=== PATIENT | female | born 1950 | race African-American/Black ===

== ENCOUNTER 2017-12-09 19:07 | Inpatient (IN) | payer MEDICARE ==
[~2017-12-09] VITALS: Ht 162.6 cm; Wt 61.3 kg
[2017-12-09] MEDS ORDERED: SODIUM CHLORIDE 0.9% 1,000 ML IV ONE (20:47)
[2017-12-09 21:22] LABS: BASOPHILS % 2.7 % (0.0-2.0); EOSINOPHILS % 2.6 % (0.0-5.0); HEMATOCRIT. 33.3 % (36.0-48.0); HEMOGLOBIN. 11.2 g/dL (12.0-16.0); LYMPHOCYTES % 29.7 % (20.0-50.0); MEAN CORPUSCULAR HEMOGLOBIN 32.3 pg (28.0-32.0); MEAN CORPUSCULAR VOLUME 96.3 fL (81.0-99.0); MEAN PLATELET VOLUME 8.7 fl (7.4-10.4); MONOCYTES % 9.7 % (2.0-8.0); NEUTROPHILS % 55.3 % (40.0-76.0); PLATELET 177 x1000/uL (130-400); RED BLOOD CELL COUNT 3.46 mill/uL (4.2-5.4); RED CELL DISTRIBUTION WIDTH 14.4 % (11.6-14.6)
[2017-12-09 21:30] LABS: CHLORIDE 106 mEq/L (98-107); INR 1.2; PARTIAL THROMBOPLASTIN TIME 28.9 sec (23.4-31.0); PROTHROMBIN TIME 12.1 sec (9.4-11.6)
[2017-12-09 21:38] LABS: TROPONIN I 0.19 ng/mL (0.00-0.04)
[2017-12-09] MEDS ORDERED: ASPIRIN 325MG EC TABLET PO ONE (22:00)
[2017-12-09] MEDS ORDERED: VANCOMYCIN 1 G PREMIX 200 ML IV ONE (23:00)
[2017-12-09] MEDS ORDERED: PIPERACILLIN/TAZ 3.375G PREMIX 50 ML IV ONE (23:00)
[2017-12-10] VITALS (8 sets, daily range): BP systolic 123–150; BP diastolic 77–108
[2017-12-10] MEDS ORDERED: POTASSIUM CHLORIDE 20MEQ TABLET SR PO NR (03:15)
[2017-12-10] MEDS ORDERED: ACETAMINOPHEN 325MG TABLET PO PRN (03:15)
[2017-12-10] MEDS ORDERED: DIPHENHYDRAMINE 50MG/ML VIAL IV PRN (03:15)
[2017-12-10] MEDS ORDERED: IPRATROPIUM/ALBUTEROL 0.5-3(2.5)MG/3ML NEB INH PRN (03:15)
[2017-12-10] MEDS: DEXT 5%/0.45% NACL 1000ML 1,000 ML IV SCH ×2 (05:02→16:35)
[2017-12-10] MEDS: SODIUM CHLORIDE 0.9% INJ 3ML FLUSH IVF SCH ×3 (05:02→21:13)
[2017-12-10 10:21] LABS: T4 FREE 0.28 ng/dL (0.76-1.46)
[2017-12-10] MEDS: CLONIDINE 0.1MG TABLET PO PRN (18:05)
[2017-12-10 18:51] LABS: CREATINE KINASE MB FRACTION 2.6 ng/mL (0.5-3.6); TROPONIN I 0.29 ng/mL (0.00-0.04)
[2017-12-11] VITALS: BP 139/90
[2017-12-11 01:07] LABS: CREATINE KINASE MB FRACTION 3.2 ng/mL (0.5-3.6)
[2017-12-11] MEDS: DEXT 5%/0.45% NACL 1000ML 1,000 ML IV SCH ×3 (03:22→21:55)
[2017-12-11 04:00] VITALS: BP 145/91
[2017-12-11] MEDS: SODIUM CHLORIDE 0.9% INJ 3ML FLUSH IVF SCH ×3 (05:11→21:54)
[2017-12-11 08:00] VITALS: BP 158/98
[2017-12-11] MEDS: ASPIRIN 81MG TABLET PO SCH (08:33)
[2017-12-11] MEDS: CLONIDINE 0.1MG TABLET PO PRN ×2 (09:57→18:44)
[2017-12-11 12:00] VITALS: BP 168/111
[2017-12-11 12:32] LABS: CREATINE KINASE MB FRACTION 3.4 ng/mL (0.5-3.6)
[2017-12-11 16:00] VITALS: BP 150/102
[2017-12-11 20:00] VITALS: BP 135/90
[2017-12-11] MEDS ORDERED: LEVOTHYROXINE SODIUM 100 MCG/ VIAL IV SCH (21:00)
[2017-12-11] MEDS: AMLODIPINE 5MG TABLET PO SCH (21:54)
[2017-12-12] VITALS: BP 131/82
[2017-12-12 04:00] VITALS: BP 155/85
[2017-12-12] MEDS: SODIUM CHLORIDE 0.9% INJ 3ML FLUSH IVF SCH ×3 (05:20→22:57)
[2017-12-12] MEDS: DEXT 5%/0.45% NACL 1000ML 1,000 ML IV SCH (05:20)
[2017-12-12 07:54] LABS: KETONES URINE NEGATIVE (NEGATIVE); LEUKOCYTE ESTERASE URINE NEGATIVE (NEGATIVE); NITRITE URINE NEGATIVE (NEGATIVE); OCCULT BLOOD URINE NEGATIVE (NEGATIVE); PH URINE 5.5 (4.5-8.0); PROTEIN URINE NEGATIVE (NEGATIVE); SPECIFIC GRAVITY URINE 1.007 (1.005-1.030); UROBILINOGEN URINE 0.2 E.U./dL (0.2-1.0)
[2017-12-12 07:56] LABS: CLARITY URINE CLEAR (CLEAR); COLOR URINE YELLOW (YELLOW)
[2017-12-12 08:00] VITALS: BP 127/102
[2017-12-12 08:30] LABS: *AMPHETAMINES SCREEN URINE NEGATIVE (NEGATIVE); *BARBITURATES SCREEN URINE NEGATIVE (NEGATIVE); *BENZODIAZEPINES SCREEN URINE NEGATIVE (NEGATIVE); *COCAINE SCREEN URINE NEGATIVE (NEGATIVE); CANNABINOID URINE SCREEN NEGATIVE (NEGATIVE); METHADONE URINE SCREEN NEGATIVE (NEGATIVE); OPIATES URINE SCREEN NEGATIVE (NEGATIVE); PHENCYCLIDINE URINE SCREEN NEGATIVE (NEGATIVE)
[2017-12-12] MEDS: AMLODIPINE 5MG TABLET PO SCH ×2 (08:33→22:57)
[2017-12-12] MEDS: ASPIRIN 81MG TABLET PO SCH (08:33)
[2017-12-12] MEDS: CLONIDINE 0.1MG TABLET PO PRN (08:38)
[2017-12-12] MEDS ORDERED: LEVOTHYROXINE SODIUM 100 MCG/ VIAL IV SCH ×2 (08:42→09:00)
[2017-12-12 12:00] VITALS: BP 131/80
[2017-12-12] MEDS ORDERED: LEVOTHYROXINE SODIUM 100MCG TABLET PO NR (15:00)
[2017-12-12 16:00] VITALS: BP 132/87
[2017-12-12 20:00] VITALS: BP 152/97
[2017-12-13] VITALS: BP 133/84
[2017-12-13 04:00] VITALS: BP 143/95
[2017-12-13] MEDS: LEVOTHYROXINE SODIUM 100MCG TABLET PO SCH (06:33)
[2017-12-13] MEDS: SODIUM CHLORIDE 0.9% INJ 3ML FLUSH IVF SCH ×3 (06:33→21:57)
[2017-12-13 08:00] VITALS: BP_SYST 136; BP_SYST 144; BP_DIAS 87; BP_DIAS 95
[2017-12-13] MEDS: AMLODIPINE 5MG TABLET PO SCH ×2 (10:31→21:55)
[2017-12-13] MEDS: ASPIRIN 81MG TABLET PO SCH (10:31)
[2017-12-13 12:00] VITALS: BP 135/90
[2017-12-13 16:00] VITALS: BP 128/84
[2017-12-14] VITALS: BP 134/82
[2017-12-14 04:00] VITALS: BP 120/77
[2017-12-14] MEDS: LEVOTHYROXINE SODIUM 100MCG TABLET PO SCH (06:47)
[2017-12-14] MEDS: SODIUM CHLORIDE 0.9% INJ 3ML FLUSH IVF SCH ×2 (06:47→13:06)
[2017-12-14 08:00] VITALS: BP 122/74
[2017-12-14] MEDS: ASPIRIN 81MG TABLET PO SCH (08:54)
[2017-12-14] MEDS: AMLODIPINE 5MG TABLET PO SCH (08:54)
[2017-12-14 12:00] VITALS: BP 127/82
[2017-12-14 16:00] VITALS: BP 118/75
[2017-12-14 18:37] VITALS: BP 118/75
== END 2017-12-14 19:30 | DRG 682 ==
LOC: ER 20:36 → 5WST 22:58 → ENRESERV 23:22 → EDBEDREQ 23:27
PROVIDERS: ADMIT Internal Medicine; ATTEND Internal Medicine
DX: N17.9 Acute kidney failure, unspecified (principal); I50.33 Acute on chronic diastolic (congestive) heart failure; J96.00 Acute respiratory failure, unspecified whether with hypoxia or hypercapnia; G93.41 Metabolic encephalopathy; E44.1 Mild protein-calorie malnutrition; E87.1 Hypo-osmolality and hyponatremia; I13.0 Hypertensive heart and chronic kidney disease with heart failure and stage 1 through stage 4 chronic kidney disease, or unspecified chronic kidney disease; N18.9 Chronic kidney disease, unspecified; E78.5 Hyperlipidemia, unspecified; E03.9 Hypothyroidism, unspecified; D64.9 Anemia, unspecified; R73.9 Hyperglycemia, unspecified; D72.819 Decreased white blood cell count, unspecified; R07.89 Other chest pain; E78.00 Pure hypercholesterolemia, unspecified; E86.0 Dehydration; Z68.23 Body mass index [BMI] 23.0-23.9, adult
CPT/HCPCS: 36415; 71045; 80048; 80053; 80061; 80305; 81003; 82533; 82550; 82553; 83036; 83605; 83735; 83880; 84100; 84439; 84443; 84484; 85025; 85379; 85610; 85730; 87040; 87086; 93005; 93306; 93970; 96361; 96365; 96367; 97162; 97166; 99285; C1893; J2543; J3370; J3490; J7030

== ENCOUNTER 2018-07-20 23:18 | Inpatient (IN) | payer MEDICARE ==
[~2018-07-20] VITALS: Ht 162.6 cm; Wt 57.6 kg
[2018-07-20] MEDS ORDERED: ONDANSETRON HCL 4MG/2ML INJ IV STA (23:37)
[2018-07-20] MEDS ORDERED: DILTIAZEM HCL 30MG TABLET PO ONE (23:45)
[2018-07-20] MEDS ORDERED: ASPIRIN 81MG TABLET PO ONE (23:45)
[2018-07-21 00:14] LABS: BASOPHILS % 0.7 % (0.0-2.0); HEMATOCRIT. 35.6 % (36.0-48.0); HEMOGLOBIN. 11.8 g/dL (12.0-16.0); LYMPHOCYTES % 27.8 % (20.0-50.0); MEAN CORPUSCULAR HEMOGLOBIN 30.5 pg (28.0-32.0); MEAN CORPUSCULAR VOLUME 91.5 fL (81.0-99.0); MEAN PLATELET VOLUME 9.7 fl (7.4-10.4); MONOCYTES % 12.8 % (2.0-8.0); NEUTROPHILS % 56.7 % (40.0-76.0); PLATELET 173 x1000/uL (130-400); RED BLOOD CELL COUNT 3.89 mill/uL (4.2-5.4); RED CELL DISTRIBUTION WIDTH 14.5 % (11.6-14.6)
[2018-07-21 00:17] LABS: CHLORIDE 102 mEq/L (98-107)
[2018-07-21 00:23] LABS: ETHANOL BLOOD < 10 mg/dL
[2018-07-21 00:24] LABS: D-DIMER 2.08 mg/L FEU (<0.50); INR 1.1; PARTIAL THROMBOPLASTIN TIME 29.4 sec (23.4-31.0); PROTHROMBIN TIME 10.8 sec (9.1-11.1)
[2018-07-21] MEDS ORDERED: IPRATROPIUM/ALBUTEROL 0.5-3(2.5)MG/3ML NEB INH PRN (02:30)
[2018-07-21] MEDS ORDERED: GUAIFENESIN 200MG/10ML SUGAR FREE UDC PO PRN (02:30)
[2018-07-21] MEDS ORDERED: ONDANSETRON HCL 4MG/2ML INJ IV PRN (02:30)
[2018-07-21] MEDS ORDERED: DIPHENHYDRAMINE 50MG/ML VIAL IV PRN (02:30)
[2018-07-21] MEDS ORDERED: MAGNESIUM/ALUMINUM HYDROXIDE/SIMETHICONE 30ML UDC PO PRN (02:30)
[2018-07-21] MEDS ORDERED: ACETAMINOPHEN 325MG TABLET PO PRN (02:30)
[2018-07-21 02:32] LABS: *AMPHETAMINES SCREEN URINE NEGATIVE (NEGATIVE); *BARBITURATES SCREEN URINE NEGATIVE (NEGATIVE); *BENZODIAZEPINES SCREEN URINE NEGATIVE (NEGATIVE); *COCAINE SCREEN URINE NEGATIVE (NEGATIVE)
[2018-07-21 02:33] LABS: CANNABINOID URINE SCREEN NEGATIVE (NEGATIVE); METHADONE URINE SCREEN NEGATIVE (NEGATIVE); OPIATES URINE SCREEN NEGATIVE (NEGATIVE); PHENCYCLIDINE URINE SCREEN NEGATIVE (NEGATIVE)
[2018-07-21 03:03] LABS: T4 FREE 1.29 ng/dL (0.76-1.46)
[2018-07-21 03:47] VITALS: BP 148/84
[2018-07-21 04:00] VITALS: BP 148/84
[2018-07-21] MEDS ORDERED: POTASSIUM CHLORIDE 20MEQ TABLET SR PO NR (05:00)
[2018-07-21] MEDS: SODIUM CHLORIDE 0.9% INJ 3ML FLUSH IVF SCH ×3 (05:11→21:06)
[2018-07-21 08:00] VITALS: BP 143/89
[2018-07-21] MEDS: ASPIRIN 81MG EC TABLET PO SCH (09:19)
[2018-07-21] MEDS: FAMOTIDINE 20MG TABLET PO SCH (09:19)
[2018-07-21] MEDS: LEVOTHYROXINE SODIUM 112MCG TABLET PO SCH (09:19)
[2018-07-21] MEDS: ENOXAPARIN 30MG/0.3ML SYR SUBCUT SCH (09:20)
[2018-07-21 14:00] VITALS: BP 145/76
[2018-07-21 16:00] VITALS: BP 142/84
[2018-07-21 20:00] VITALS: BP 150/88
[2018-07-22] VITALS: BP 133/80
[2018-07-22 04:00] VITALS: BP 141/83
[2018-07-22] MEDS: SODIUM CHLORIDE 0.9% INJ 3ML FLUSH IVF SCH ×3 (05:49→22:07)
[2018-07-22 08:00] VITALS: BP 143/84
[2018-07-22] MEDS: ASPIRIN 81MG EC TABLET PO SCH (08:13)
[2018-07-22] MEDS: LEVOTHYROXINE SODIUM 112MCG TABLET PO SCH (08:13)
[2018-07-22] MEDS: FAMOTIDINE 20MG TABLET PO SCH (08:13)
[2018-07-22] MEDS: ENOXAPARIN 30MG/0.3ML SYR SUBCUT SCH (08:15)
[2018-07-22 12:00] VITALS: BP 159/97
[2018-07-22] MEDS: CLOPIDOGREL 75MG TABLET PO SCH (13:36)
[2018-07-22] MEDS ORDERED: REGADENOSON 0.4 MG/5 ML IV NR (14:30)
[2018-07-22] MEDS: CLONIDINE 0.1MG TABLET PO PRN (15:12)
[2018-07-22 16:00] VITALS: BP 122/75
[2018-07-22 20:00] VITALS: BP 142/72
[2018-07-23] VITALS: BP 138/73
[2018-07-23 02:09] LABS: CREATINE KINASE MB FRACTION 1.4 ng/mL (0.5-3.6)
[2018-07-23 04:31] VITALS: BP 146/77
[2018-07-23] MEDS: SODIUM CHLORIDE 0.9% INJ 3ML FLUSH IVF SCH ×2 (05:29→13:49)
[2018-07-23 08:00] VITALS: BP 156/102
[2018-07-23] MEDS ORDERED: REGADENOSON 0.4 MG/5 ML IV ONE (08:14)
[2018-07-23] MEDS: CLOPIDOGREL 75MG TABLET PO SCH (09:41)
[2018-07-23] MEDS: ASPIRIN 81MG EC TABLET PO SCH (09:41)
[2018-07-23] MEDS: LEVOTHYROXINE SODIUM 112MCG TABLET PO SCH (09:41)
[2018-07-23] MEDS: ENOXAPARIN 30MG/0.3ML SYR SUBCUT SCH (09:41)
[2018-07-23] MEDS: FAMOTIDINE 20MG TABLET PO SCH (09:42)
[2018-07-23] MEDS: CLONIDINE 0.1MG TABLET PO PRN (09:47)
[2018-07-23 12:00] VITALS: BP 130/85
[2018-07-23 16:00] VITALS: BP 148/90
[2018-07-23 16:31] VITALS: BP 148/90
== END 2018-07-23 19:22 | disposition home health service (06) | DRG 309 ==
LOC: ER 23:18 → 7WST 07-21 01:24 → EDBEDREQ 07-21 01:32 → EDBEDREQTM 07-21 01:32 → ENRESERV 07-21 01:39
PROVIDERS: ADMIT Internal Medicine; ATTEND Internal Medicine
DX: I47.1 Supraventricular tachycardia (principal); I50.42 Chronic combined systolic (congestive) and diastolic (congestive) heart failure; I13.0 Hypertensive heart and chronic kidney disease with heart failure and stage 1 through stage 4 chronic kidney disease, or unspecified chronic kidney disease; I24.9 Acute ischemic heart disease, unspecified; R79.1 Abnormal coagulation profile; E03.9 Hypothyroidism, unspecified; N18.9 Chronic kidney disease, unspecified; Z90.3 Acquired absence of stomach [part of]
CPT/HCPCS: 36415; 71045; 78452; 78582; 80048; 80053; 80305; 82550; 82553; 83735; 83880; 84439; 84443; 84484; 85025; 85379; 85610; 85730; 93005; 93017; 93306; 93970; 99285; A9500; A9558; G0482; J1650; J2785

== ENCOUNTER 2018-07-23 21:34 | Emergency (ER) | payer MEDICARE ==
[~2018-07-23] VITALS: Ht 162.6 cm; Wt 50.0 kg
[2018-07-24 05:05] VITALS: BP 138/86
== END 2018-07-24 05:06 | disposition home or self-care (01) ==
LOC: ER 21:34
DX: R51 Headache (principal); R42 Dizziness and giddiness; I10 Essential (primary) hypertension
CPT/HCPCS: 99283

== ENCOUNTER 2018-10-09 22:36 | Emergency (ER) | payer SELFPAY ==
[~2018-10-09] VITALS: Ht 162.6 cm; Wt 60.0 kg
[2018-10-09] MEDS ORDERED: ACETAMINOPHEN 500MG TABLET PO ONE (23:30)
[2018-10-09] MEDS ORDERED: TRAMADOL 50MG TABLET PO ONE (23:30)
[2018-10-10 02:05] VITALS: BP 148/97
== END 2018-10-10 02:10 | disposition home or self-care (01) ==
LOC: ER 22:36
DX: R51 Headache (principal)
CPT/HCPCS: 99283

== ENCOUNTER 2018-11-04 17:25 | Inpatient (IN) | payer MEDICARE ==
[~2018-11-04] VITALS: Ht 162.6 cm; Wt 71.2 kg
[2018-11-04 19:47] LABS: BASOPHILS % 1.2 % (0.0-2.0); EOSINOPHILS % 1.4 % (0.0-5.0); HEMATOCRIT. 34.9 % (36.0-48.0); HEMOGLOBIN. 11.7 g/dL (12.0-16.0); LYMPHOCYTES % 31.4 % (20.0-50.0); MEAN CORPUSCULAR HEMOGLOBIN 30.8 pg (28.0-32.0); MEAN PLATELET VOLUME 9.2 fl (7.4-10.4); MONOCYTES % 10.5 % (2.0-8.0); NEUTROPHILS % 55.5 % (40.0-76.0); PLATELET 176 x1000/uL (130-400); RED CELL DISTRIBUTION WIDTH 14.8 % (11.6-14.6)
[2018-11-04 19:49] LABS: CHLORIDE 107 mEq/L (98-107)
[2018-11-04] MEDS ORDERED: GUAIFENESIN 200MG/10ML SUGAR FREE UDC PO PRN (22:00)
[2018-11-04] MEDS ORDERED: ACETAMINOPHEN 325MG TABLET PO PRN (22:00)
[2018-11-04] MEDS ORDERED: MAGNESIUM/ALUMINUM HYDROXIDE/SIMETHICONE 30ML UDC PO PRN (22:00)
[2018-11-04] MEDS ORDERED: DOCUSATE SODIUM 100MG CAPSULE PO PRN (22:00)
[2018-11-04] MEDS ORDERED: TRAMADOL 50MG TABLET PO PRN (22:00)
[2018-11-04] MEDS ORDERED: IPRATROPIUM/ALBUTEROL 0.5-3(2.5)MG/3ML NEB INH PRN (22:00)
[2018-11-04] MEDS ORDERED: ONDANSETRON HCL 4MG/2ML INJ IV PRN (22:00)
[2018-11-04] MEDS ORDERED: NITROGLYCERIN 0.4MG TABLET SL SL PRN (22:00)
[2018-11-04] MEDS ORDERED: CLONIDINE 0.1MG TABLET PO PRN (22:00)
[2018-11-04] MEDS ORDERED: ZOLPIDEM TARTRATE 5MG TABLET PO PRN (22:00)
[2018-11-04 22:34] LABS: T4 FREE 0.45 ng/dL (0.76-1.46)
[2018-11-04 22:45] LABS: FOLIC ACID (FOLATE) SERUM 8.3 ng/mL (>5.38)
[2018-11-05 02:00] VITALS: BP 157/93
[2018-11-05 04:00] VITALS: BP_SYST 131; BP_SYST 155; BP_DIAS 46; BP_DIAS 74
[2018-11-05] MEDS: HYDRALAZINE HCL 50MG TABLET PO SCH ×2 (06:29→14:37)
[2018-11-05] MEDS ORDERED: LEVOTHYROXINE SODIUM 112MCG TABLET PO SCH (07:20)
[2018-11-05 08:00] VITALS: BP 148/78
[2018-11-05] MEDS ORDERED: ENOXAPARIN 40MG/0.4ML SYR SUBCUT SCH (09:00)
[2018-11-05] MEDS ORDERED: FAMOTIDINE 20MG TABLET PO SCH (09:00)
[2018-11-05] MEDS ORDERED: ASPIRIN 325MG EC TABLET PO SCH (09:00)
[2018-11-05 12:00] VITALS: BP 148/85
[2018-11-05 13:56] VITALS: BP 128/78
== END 2018-11-05 15:10 | disposition home or self-care (01) | DRG 683 ==
LOC: ER 17:25 → EDBEDREQ 21:01 → 6WST 21:25 → EDBEDREQ 21:26 → SUPCPDRO 21:48 → ENRESERV 23:41
PROVIDERS: ADMIT Internal Medicine; ATTEND Internal Medicine
DX: N17.0 Acute kidney failure with tubular necrosis (principal); E44.1 Mild protein-calorie malnutrition; R79.89 Other specified abnormal findings of blood chemistry; D64.9 Anemia, unspecified; N18.9 Chronic kidney disease, unspecified; E03.9 Hypothyroidism, unspecified; I12.9 Hypertensive chronic kidney disease with stage 1 through stage 4 chronic kidney disease, or unspecified chronic kidney disease; Z91.14 Patient's other noncompliance with medication regimen; Z68.26 Body mass index [BMI] 26.0-26.9, adult
CPT/HCPCS: 36415; 71045; 80061; 82140; 82607; 82746; 82962; 83036; 83605; 83880; 84439; 84443; 84484; 93005; 93970; 99285; J1650

== ENCOUNTER 2018-12-10 17:39 | Inpatient (IN) | payer MEDICARE ==
[~2018-12-10] VITALS: Ht 144.8 cm; Wt 49.9 kg
[2018-12-10 19:22] LABS: BASOPHILS % 1.2 % (0.0-2.0); EOSINOPHILS % 0.8 % (0.0-5.0); HEMATOCRIT. 39.7 % (36.0-48.0); HEMOGLOBIN. 12.9 g/dL (12.0-16.0); LYMPHOCYTES % 41.5 % (20.0-50.0); MEAN CORPUSCULAR HEMOGLOBIN 30.7 pg (28.0-32.0); MEAN CORPUSCULAR VOLUME 94.8 fL (81.0-99.0); MEAN PLATELET VOLUME 9.1 fl (7.4-10.4); MONOCYTES % 11.1 % (2.0-8.0); NEUTROPHILS % 45.4 % (40.0-76.0); PLATELET 148 x1000/uL (130-400); RED BLOOD CELL COUNT 4.19 mill/uL (4.2-5.4); RED CELL DISTRIBUTION WIDTH 14.8 % (11.6-14.6)
[2018-12-10 19:24] LABS: CHLORIDE 106 mEq/L (98-107)
[2018-12-10] MEDS ORDERED: ASPIRIN 325MG TABLET PO NR (20:00)
[2018-12-11 06:08] LABS: CLARITY URINE CLEAR (CLEAR); COLOR URINE YELLOW (YELLOW); KETONES URINE TRACE (NEGATIVE); LEUKOCYTE ESTERASE URINE 2+ (NEGATIVE); NITRITE URINE NEGATIVE (NEGATIVE); OCCULT BLOOD URINE NEGATIVE (NEGATIVE); PROTEIN URINE 1+ (NEGATIVE); SPECIFIC GRAVITY URINE 1.025 (1.005-1.030)
[2018-12-11 06:28] LABS: *AMPHETAMINES SCREEN URINE NEGATIVE (NEGATIVE); *BARBITURATES SCREEN URINE NEGATIVE (NEGATIVE); *BENZODIAZEPINES SCREEN URINE NEGATIVE (NEGATIVE); *COCAINE SCREEN URINE NEGATIVE (NEGATIVE); METHADONE URINE SCREEN NEGATIVE (NEGATIVE); OPIATES URINE SCREEN NEGATIVE (NEGATIVE)
[2018-12-11 06:29] LABS: CANNABINOID URINE SCREEN NEGATIVE (NEGATIVE); PHENCYCLIDINE URINE SCREEN NEGATIVE (NEGATIVE)
[2018-12-11] MEDS ORDERED: ACETAMINOPHEN 325MG TABLET PO PRN (08:00)
[2018-12-11] MEDS ORDERED: CEFTRIAXONE 1 G PREMIX 50 ML IV SCH (08:00)
[2018-12-11] MEDS ORDERED: ONDANSETRON HCL 4MG/2ML INJ IV PRN (08:00)
[2018-12-11 08:36] LABS: BASOPHILS % 1.2 % (0.0-2.0); EOSINOPHILS % 1.7 % (0.0-5.0); HEMATOCRIT. 36.5 % (36.0-48.0); LYMPHOCYTES % 44.6 % (20.0-50.0); MEAN CORPUSCULAR HEMOGLOBIN 30.9 pg (28.0-32.0); MEAN CORPUSCULAR VOLUME 93.4 fL (81.0-99.0); MEAN PLATELET VOLUME 9.1 fl (7.4-10.4); MONOCYTES % 11.1 % (2.0-8.0); NEUTROPHILS % 41.4 % (40.0-76.0); PLATELET 145 x1000/uL (130-400); RED CELL DISTRIBUTION WIDTH 14.7 % (11.6-14.6)
[2018-12-11 08:50] VITALS: BP 127/76
[2018-12-11 09:00] VITALS: BP 127/76
[2018-12-11 12:00] VITALS: BP 132/76
[2018-12-11] MEDS: ASPIRIN 81MG TABLET PO SCH (14:14)
[2018-12-11] MEDS: LEVOTHYROXINE SODIUM 50MCG TABLET PO SCH (14:14)
[2018-12-11] MEDS: CEFTRIAXONE 1,000 MG in DEXTROSE 5% WATER 50 ML IV SCH (14:18)
[2018-12-11 16:00] VITALS: BP 129/78
[2018-12-11 20:00] VITALS: BP_SYST 133; BP_SYST 135; BP_SYST 145; BP_DIAS 88; BP_DIAS 92; BP_DIAS 96
[2018-12-11] MEDS: ATORVASTATIN CALCIUM 40MG TABLET PO SCH (20:45)
[2018-12-12] VITALS: BP 135/86
[2018-12-12 04:00] VITALS: BP 133/82
[2018-12-12] MEDS: LEVOTHYROXINE SODIUM 50MCG TABLET PO SCH (06:26)
[2018-12-12 08:26] VITALS: BP_SYST 118; BP_SYST 120; BP_DIAS 61; BP_DIAS 84
[2018-12-12] MEDS: ASPIRIN 81MG TABLET PO SCH (08:34)
[2018-12-12] MEDS: CEFTRIAXONE 1,000 MG in DEXTROSE 5% WATER 50 ML IV SCH (11:35)
[2018-12-12 12:09] VITALS: BP 116/74
[2018-12-12 13:28] LABS: BASOPHILS % 1.4 % (0.0-2.0); EOSINOPHILS % 1.8 % (0.0-5.0); HEMOGLOBIN. 11.4 g/dL (12.0-16.0); MEAN CORPUSCULAR VOLUME 92.5 fL (81.0-99.0); MEAN PLATELET VOLUME 9.5 fl (7.4-10.4); NEUTROPHILS % 36.8 % (40.0-76.0); PLATELET 134 x1000/uL (130-400); RED BLOOD CELL COUNT 3.68 mill/uL (4.2-5.4); RED CELL DISTRIBUTION WIDTH 14.6 % (11.6-14.6)
[2018-12-12 16:19] VITALS: BP 124/76
[2018-12-12 20:00] VITALS: BP_SYST 110; BP_SYST 134; BP_SYST 136; BP_DIAS 73; BP_DIAS 88; BP_DIAS 98
[2018-12-12] MEDS: ATORVASTATIN CALCIUM 40MG TABLET PO SCH (21:26)
[2018-12-13] VITALS: BP 158/90
[2018-12-13 04:00] VITALS: BP 112/74
[2018-12-13] MEDS: LEVOTHYROXINE SODIUM 50MCG TABLET PO SCH (06:18)
[2018-12-13 08:00] VITALS: BP 135/91
[2018-12-13] MEDS: ASPIRIN 81MG TABLET PO SCH (08:13)
[2018-12-13] MEDS: CEFTRIAXONE 1,000 MG in DEXTROSE 5% WATER 50 ML IV SCH (10:33)
[2018-12-13 12:00] VITALS: BP 141/87
[2018-12-13 16:00] VITALS: BP_SYST 133; BP_SYST 136; BP_SYST 139; BP_DIAS 83; BP_DIAS 93; BP_DIAS 97
[2018-12-13 20:00] VITALS: BP_SYST 110; BP_SYST 114; BP_SYST 127; BP_DIAS 69; BP_DIAS 72; BP_DIAS 77
[2018-12-13] MEDS: ATORVASTATIN CALCIUM 40MG TABLET PO SCH (20:25)
[2018-12-14] VITALS: BP 118/86
[2018-12-14 04:00] VITALS: BP 115/85
[2018-12-14] MEDS: LEVOTHYROXINE SODIUM 50MCG TABLET PO SCH (06:33)
[2018-12-14 08:00] VITALS: BP 128/72
[2018-12-14 08:19] VITALS: BP 128/72
[2018-12-14] MEDS: ASPIRIN 81MG TABLET PO SCH (09:00)
[2018-12-14] MEDS: CEFTRIAXONE 1,000 MG in DEXTROSE 5% WATER 50 ML IV SCH (11:00)
[2018-12-14 11:09] VITALS: BP 128/72
[2018-12-14 12:00] VITALS: BP 116/77
== END 2018-12-14 12:45 | disposition home health service (06) | DRG 872 ==
LOC: ER 17:39 → 8WST 20:03 → EDBEDREQ 20:07 → EDBEDREQTM 20:07 → ENRESERV 12-11 07:21
PROVIDERS: ADMIT Internal Medicine; ATTEND Internal Medicine
DX: A41.9 Sepsis, unspecified organism (principal); I47.1 Supraventricular tachycardia; N39.0 Urinary tract infection, site not specified; I42.9 Cardiomyopathy, unspecified; I50.22 Chronic systolic (congestive) heart failure; I13.0 Hypertensive heart and chronic kidney disease with heart failure and stage 1 through stage 4 chronic kidney disease, or unspecified chronic kidney disease; N18.3 Chronic kidney disease, stage 3 (moderate); E78.5 Hyperlipidemia, unspecified; E03.9 Hypothyroidism, unspecified; K21.9 Gastro-esophageal reflux disease without esophagitis; F03.90 Unspecified dementia, unspecified severity, without behavioral disturbance, psychotic disturbance, mood disturbance, and anxiety; D64.9 Anemia, unspecified; J44.9 Chronic obstructive pulmonary disease, unspecified; E05.90 Thyrotoxicosis, unspecified without thyrotoxic crisis or storm
CPT/HCPCS: 36415; 71045; 80048; 80305; 83735; 83880; 84484; 93005; 93970; 99291; J0696; J7050; J7060

== ENCOUNTER 2018-12-21 08:49 | Inpatient (IN) | payer MEDICARE ==
[~2018-12-21] VITALS: Ht 162.6 cm; Wt 61.2 kg
[2018-12-21] MEDS ORDERED: SODIUM CHLORIDE 0.9% 500 ML IV ONE (11:26)
[2018-12-21 11:30] LABS: HEMATOCRIT. 35.4 % (36.0-48.0); HEMOGLOBIN. 11.7 g/dL (12.0-16.0); MEAN CORPUSCULAR HEMOGLOBIN 31.1 pg (28.0-32.0); MEAN CORPUSCULAR VOLUME 94.6 fL (81.0-99.0); MEAN PLATELET VOLUME 8.9 fl (7.4-10.4); PLATELET 165 x1000/uL (130-400); RED BLOOD CELL COUNT 3.74 mill/uL (4.2-5.4)
[2018-12-21 11:36] LABS: CHLORIDE 105 mEq/L (98-107)
[2018-12-21 11:39] LABS: INR 1.1; PROTHROMBIN TIME 11.2 sec (9.1-11.1)
[2018-12-21 11:56] LABS: CLARITY URINE CLEAR (CLEAR); COLOR URINE YELLOW (YELLOW); KETONES URINE NEGATIVE (NEGATIVE); LEUKOCYTE ESTERASE URINE NEGATIVE (NEGATIVE); NITRITE URINE NEGATIVE (NEGATIVE); OCCULT BLOOD URINE NEGATIVE (NEGATIVE); PH URINE 5.5 (4.5-8.0); PROTEIN URINE TRACE (NEGATIVE); SPECIFIC GRAVITY URINE 1.017 (1.005-1.030); UROBILINOGEN URINE 0.2 E.U./dL (0.2-1.0)
[2018-12-21] MEDS ORDERED: ENALAPRIL 2.5MG/2ML VIAL 2ML IV ONE (12:15)
[2018-12-21] MEDS ORDERED: CEFTRIAXONE 1 G PREMIX 50 ML IV ONE (12:15)
[2018-12-21 13:46] LABS: PLATELET ESTIMATE NORMAL
[2018-12-21] MEDS ORDERED: KETOROLAC 15MG/ML VIAL IV PRN ×2 (15:45→18:00)
[2018-12-21] MEDS ORDERED: GUAIFENESIN 200MG/10ML SUGAR FREE UDC PO PRN (15:45)
[2018-12-21] MEDS ORDERED: NITROGLYCERIN 0.4MG TABLET SL SL PRN (15:45)
[2018-12-21] MEDS ORDERED: ZOLPIDEM TARTRATE 5MG TABLET PO PRN (15:45)
[2018-12-21] MEDS ORDERED: DOCUSATE SODIUM 100MG CAPSULE PO PRN (15:45)
[2018-12-21] MEDS ORDERED: IPRATROPIUM/ALBUTEROL 0.5-3(2.5)MG/3ML NEB INH PRN (15:45)
[2018-12-21] MEDS ORDERED: CLONIDINE 0.1MG TABLET PO PRN (15:45)
[2018-12-21] MEDS ORDERED: LORAZEPAM 0.5MG TABLET PO PRN (15:45)
[2018-12-21] MEDS ORDERED: ONDANSETRON HCL 4MG/2ML INJ IV PRN (15:45)
[2018-12-21] MEDS ORDERED: MAGNESIUM/ALUMINUM HYDROXIDE/SIMETHICONE 30ML UDC PO PRN (15:45)
[2018-12-21] MEDS ORDERED: LEVOFLOXACIN 500MG PREMIX 100 ML IV SCH (16:22)
[2018-12-21 16:27] LABS: T4 FREE 0.43 ng/dL (0.76-1.46)
[2018-12-21 16:46] LABS: *BARBITURATES SCREEN URINE NEGATIVE (NEGATIVE); *BENZODIAZEPINES SCREEN URINE NEGATIVE (NEGATIVE); *COCAINE SCREEN URINE NEGATIVE (NEGATIVE); METHADONE URINE SCREEN NEGATIVE (NEGATIVE)
[2018-12-21 16:47] LABS: *AMPHETAMINES SCREEN URINE NEGATIVE (NEGATIVE); CANNABINOID URINE SCREEN NEGATIVE (NEGATIVE); OPIATES URINE SCREEN NEGATIVE (NEGATIVE); PHENCYCLIDINE URINE SCREEN NEGATIVE (NEGATIVE)
[2018-12-21 17:50] VITALS: BP 175/104
[2018-12-21] MEDS: ACETAMINOPHEN 325MG TABLET PO PRN ×2 (17:51→21:49)
[2018-12-21] MEDS ORDERED: ENOXAPARIN 40MG/0.4ML SYR SUBCUT SCH (18:00)
[2018-12-21 18:07] VITALS: BP 174/104
[2018-12-21] MEDS: LACTULOSE 20G/30ML UDC PO SCH ×2 (18:22→21:21)
[2018-12-21] MEDS: FUROSEMIDE 40MG/4ML VIAL IVP SCH (18:23)
[2018-12-21] MEDS: ASCORBIC ACID 500 MG TABLET PO SCH (20:10)
[2018-12-21] MEDS: LISINOPRIL 20MG TABLET PO SCH (20:11)
[2018-12-21] MEDS ORDERED: FILGRASTIM-TBO 300 MCG/0.5 ML SYRINGE SQ SCH (21:00)
[2018-12-21] MEDS ORDERED: FAMOTIDINE 20MG TABLET PO SCH (21:00)
[2018-12-22] VITALS: BP 121/80
[2018-12-22] MEDS: LACTULOSE 20G/30ML UDC PO SCH ×3 (02:00→10:00)
[2018-12-22 04:00] VITALS: BP 124/82
[2018-12-22] MEDS: FUROSEMIDE 40MG/4ML VIAL IVP SCH (06:46)
[2018-12-22] MEDS ORDERED: LEVOTHYROXINE SODIUM 112MCG TABLET PO SCH (07:20)
[2018-12-22] MEDS ORDERED: LEVOTHYROXINE SODIUM 75MCG TABLET PO SCH (07:20)
[2018-12-22 08:00] VITALS: BP 140/79
[2018-12-22] MEDS ORDERED: CEFTRIAXONE 1 G PREMIX 50 ML IV SCH (09:00)
[2018-12-22] MEDS: ASCORBIC ACID 500 MG TABLET PO SCH (09:00)
[2018-12-22] MEDS ORDERED: ASPIRIN 325MG EC TABLET PO SCH (09:00)
[2018-12-22] MEDS: LISINOPRIL 20MG TABLET PO SCH (09:00)
[2018-12-22 09:01] LABS: HEMATOCRIT. 35.7 % (36.0-48.0); HEMOGLOBIN. 11.8 g/dL (12.0-16.0); MEAN PLATELET VOLUME 8.7 fl (7.4-10.4); PLATELET 150 x1000/uL (130-400); RED CELL DISTRIBUTION WIDTH 15.1 % (11.6-14.6)
[2018-12-22 09:16] LABS: CHLORIDE 102 mEq/L (98-107)
[2018-12-22 11:54] VITALS: BP 140/79
[2018-12-22 12:00] VITALS: BP 159/99
[2018-12-22] MEDS ORDERED: CEFTRIAXONE 1,000 MG in DEXTROSE 5% WATER 50 ML IV SCH (12:00)
[2018-12-22] MEDS ORDERED: LEVOFLOXACIN 250MG PREMIX 50 ML IV SCH (13:00)
[2018-12-22 14:29] LABS: PLATELET ESTIMATE NORMAL
[2018-12-23] MEDS ORDERED: LEVOFLOXACIN 250MG PREMIX 50 ML IV SCH (13:00)
== END 2018-12-22 12:32 | disposition home or self-care (01) | DRG 689 ==
LOC: ER 08:54 → 6EST 12:44 → EDBEDREQ 12:46 → ENRESERV 16:01
PROVIDERS: ADMIT Internal Medicine; ATTEND Internal Medicine
DX: N39.0 Urinary tract infection, site not specified (principal); N17.0 Acute kidney failure with tubular necrosis; E44.1 Mild protein-calorie malnutrition; D70.9 Neutropenia, unspecified; E05.90 Thyrotoxicosis, unspecified without thyrotoxic crisis or storm; E03.9 Hypothyroidism, unspecified; I11.0 Hypertensive heart disease with heart failure; I50.9 Heart failure, unspecified; K21.9 Gastro-esophageal reflux disease without esophagitis; Z68.23 Body mass index [BMI] 23.0-23.9, adult
CPT/HCPCS: 36415; 74176; 80305; 83036; 84439; 84443; 96374; 99285; J0696; J1442; J1650; J1940; J1956; J3490; J7040; J7060

== ENCOUNTER 2022-02-16 19:43 | Emergency (ER) | payer MEDICARE, MEDICAID ==
[~2022-02-16] VITALS: Ht 160 cm; Wt 60.0 kg
[~2022-02-16 19:43] MED LIST: AMLO10TA4 PO; ASPI-1497 PO; ATOR20TA PO; DOCU-138 PO; LACT-48 PO; LEVO100T PO; METO-539 PO; MULT-1146 PO; RISP1 PO
[2022-02-16] MEDS ORDERED: BACITRACIN ZINC OINT UDPKT TOP ONE (21:30)
[2022-02-16] MEDS ORDERED: LIDOCAINE HCL/PF 1% 10 MG/ML 5ML VIAL INFIL ONE (21:30)
[2022-02-16] MEDS ORDERED: LIDOCAINE HCL 1% 10 MG/ML 10ML VIAL INJ NR (22:00)
[2022-02-17 11:33] VITALS: BP 170/93
== END 2022-02-17 11:34 ==
LOC: ER 19:43
DX: S61.317A Laceration without foreign body of left little finger with damage to nail, initial encounter (principal); I10 Essential (primary) hypertension; Z79.82 Long term (current) use of aspirin; Z79.899 Other long term (current) drug therapy; X58.XXXA Exposure to other specified factors, initial encounter; Y93.89 Activity, other specified; Y92.89 Other specified places as the place of occurrence of the external cause; Y99.8 Other external cause status
CPT/HCPCS: 99283; J3490

== ENCOUNTER 2022-08-18 13:48 | Inpatient (IN) | payer MEDICARE, MEDICAID ==
[~2022-08-18] VITALS: Ht 165.1 cm; Wt 79.4 kg
[2022-08-18] MEDS ORDERED: SODIUM CHLORIDE 0.9% 1000ML BAG (SEPSIS BOLUS) IV ONE (15:15)
[2022-08-18 16:14] LABS: BASOPHILS % 0.8 % (0.0-2.0); EOSINOPHILS % 0.7 % (0.0-5.0); HEMOGLOBIN. 11.6 g/dL (12.0-16.0); LYMPHOCYTES % 24.5 % (20.0-50.0); MEAN CORPUSCULAR VOLUME 95.7 fL (81.0-99.0); MEAN PLATELET VOLUME 10.6 fl (7.4-10.4); MONOCYTES % 11.3 % (2.0-8.0); NEUTROPHILS % 62.7 % (40.0-76.0); PLATELET 135 x1000/uL (130-400); RED BLOOD CELL COUNT 3.76 mill/uL (4.2-5.4); RED CELL DISTRIBUTION WIDTH 15.5 % (11.6-14.6)
[2022-08-18] MEDS ORDERED: PIPERACILLIN/TAZ 3.375G PREMIX 50 ML IV ONE (16:30)
[2022-08-18] MEDS ORDERED: VANCOMYCIN 1G PREMIX 200 ML IV ONE (16:30)
[2022-08-18 16:44] LABS: CHLORIDE 114 mEq/L (98-107)
[2022-08-18 17:07] LABS: T4 FREE 2.03 ng/dL (0.76-1.46)
[2022-08-18 17:15] LABS: INR 1.1; PROTHROMBIN TIME 11.6 sec (9.6-11.0)
[2022-08-18] MEDS ORDERED: SODIUM BICARBONATE 8.4% 1 MEQ/ML 50ML SYR IV ONE (17:30)
[2022-08-18] MEDS ORDERED: ALBUTEROL (0.083%) 2.5MG/3ML NEB HHN ONE (17:30)
[2022-08-18] MEDS ORDERED: SODIUM POLYSTYRENE SULFONATE 15 G/60 ML BOT PO ONE (17:30)
[2022-08-18] MEDS ORDERED: ASPIRIN 81MG TABLET PO ONE (17:30)
[2022-08-18] MEDS ORDERED: SODIUM CHLORIDE 0.9% 1,000 ML IV ONE (20:30)
[2022-08-19] VITALS (12 sets, daily range): BP systolic 98–140; BP diastolic 50–89
[2022-08-19] MEDS ORDERED: DEXT 5%/0.45% NACL 1000ML 1,000 ML IV SCH (04:30)
[2022-08-19 05:00] LABS: CLARITY URINE CLOUDY (CLEAR); COLOR URINE YELLOW (YELLOW); KETONES URINE NEGATIVE (NEGATIVE); LEUKOCYTE ESTERASE URINE 3+ (NEGATIVE); NITRITE URINE NEGATIVE (NEGATIVE); OCCULT BLOOD URINE NEGATIVE (NEGATIVE); PROTEIN URINE 1+ (NEGATIVE); SPECIFIC GRAVITY URINE 1.017 (1.005-1.030); UROBILINOGEN URINE 0.2 E.U./dL (0.2-1.0)
[2022-08-19 08:32] LABS: BASOPHILS % 0.1 % (0.0-2.0); HEMATOCRIT. 30.6 % (36.0-48.0); HEMOGLOBIN. 10.1 g/dL (12.0-16.0); LYMPHOCYTES % 7.1 % (20.0-50.0); MEAN CORPUSCULAR HEMOGLOBIN 31.5 pg (28.0-32.0); MEAN CORPUSCULAR VOLUME 95.3 fL (81.0-99.0); MEAN PLATELET VOLUME 10.6 fl (7.4-10.4); MONOCYTES % 6.8 % (2.0-8.0); PLATELET 117 x1000/uL (130-400); RED BLOOD CELL COUNT 3.21 mill/uL (4.2-5.4); RED CELL DISTRIBUTION WIDTH 15.6 % (11.6-14.6)
[2022-08-19] MEDS ORDERED: SODIUM POLYSTYRENE SULFONATE 15 G/60 ML BOT PO NR (10:30)
[2022-08-19] MEDS: DEXTROSE 5% WATER 1,000 ML IV SCH ×2 (10:51→21:59)
[2022-08-19] MEDS: CEFTRIAXONE 1,000 MG in DEXTROSE 5% WATER 50 ML IV SCH (12:18)
[2022-08-19] MEDS: SULFACETAMIDE SODIUM 10% OPHTH DROPS 15ML EACHEYE SCH ×3 (15:09→21:58)
[2022-08-20] VITALS (11 sets, daily range): BP systolic 135–152; BP diastolic 18–107
[2022-08-20 06:32] LABS: HEMATOCRIT. 32.8 % (36.0-48.0); HEMOGLOBIN. 10.8 g/dL (12.0-16.0); MEAN CORPUSCULAR HEMOGLOBIN 31.4 pg (28.0-32.0); MEAN CORPUSCULAR VOLUME 95.6 fL (81.0-99.0); MEAN PLATELET VOLUME 10.3 fl (7.4-10.4); PLATELET 107 x1000/uL (130-400); RED BLOOD CELL COUNT 3.44 mill/uL (4.2-5.4); RED CELL DISTRIBUTION WIDTH 15.4 % (11.6-14.6)
[2022-08-20 06:52] LABS: PHOSPHORUS 3.8 mg/dL (2.5-4.9)
[2022-08-20] MEDS: CEFTRIAXONE 1,000 MG in DEXTROSE 5% WATER 50 ML IV SCH (08:22)
[2022-08-20] MEDS: SULFACETAMIDE SODIUM 10% OPHTH DROPS 15ML EACHEYE SCH ×4 (08:22→21:41)
[2022-08-20 11:00] LABS: PLATELET ESTIMATE DECREASED
[2022-08-20] MEDS: DEXTROSE 5% WATER 1,000 ML IV SCH (21:40)
[2022-08-21] VITALS (12 sets, daily range): BP systolic 119–161; BP diastolic 61–107
[2022-08-21] MEDS: CEFTRIAXONE 1,000 MG in DEXTROSE 5% WATER 50 ML IV SCH (11:53)
[2022-08-21] MEDS: DEXTROSE 5% WATER 1,000 ML IV SCH (12:30)
[2022-08-21] MEDS ORDERED: AMLODIPINE 5MG TABLET PO NR (12:30)
[2022-08-21 17:23] LABS: BASOPHILS % 0.6 % (0.0-2.0); EOSINOPHILS % 2.6 % (0.0-5.0); HEMATOCRIT. 37.3 % (36.0-48.0); MEAN CORPUSCULAR HEMOGLOBIN 31.4 pg (28.0-32.0); MEAN CORPUSCULAR VOLUME 97.7 fL (81.0-99.0); MONOCYTES % 14.5 % (2.0-8.0); NEUTROPHILS % 46.3 % (40.0-76.0); PLATELET 84 x1000/uL (130-400); RED BLOOD CELL COUNT 3.82 mill/uL (4.2-5.4); RED CELL DISTRIBUTION WIDTH 15.9 % (11.6-14.6)
[2022-08-21] MEDS: ATORVASTATIN CALCIUM 20MG TABLET PO SCH (20:55)
[2022-08-21] MEDS: AMLODIPINE 5MG TABLET PO SCH (20:56)
[2022-08-22] VITALS (11 sets, daily range): BP systolic 129–153; BP diastolic 60–98
[2022-08-22] MEDS: DEXTROSE 5% WATER 1,000 ML IV SCH (05:15)
[2022-08-22 06:49] LABS: HEMOGLOBIN. 12.2 g/dL (12.0-16.0); MEAN CORPUSCULAR HEMOGLOBIN 31.6 pg (28.0-32.0); MEAN PLATELET VOLUME 10.2 fl (7.4-10.4); PLATELET 90 x1000/uL (130-400); RED BLOOD CELL COUNT 3.85 mill/uL (4.2-5.4); RED CELL DISTRIBUTION WIDTH 15.2 % (11.6-14.6)
[2022-08-22 08:53] LABS: PLATELET ESTIMATE DECREASED
[2022-08-22] MEDS: CEFTRIAXONE 1,000 MG in DEXTROSE 5% WATER 50 ML IV SCH (10:01)
[2022-08-22] MEDS: SODIUM CHLORIDE 0.45% 1,000 ML IV SCH ×2 (10:01→21:42)
[2022-08-22] MEDS: ASPIRIN 81MG EC TABLET PO SCH (10:02)
[2022-08-22] MEDS: AMLODIPINE 5MG TABLET PO SCH ×2 (10:02→21:41)
[2022-08-22] MEDS: NITROGLYCERIN OINT 1GM/INCH UDPKT TD SCH ×2 (14:38→21:42)
[2022-08-22] MEDS: ATORVASTATIN CALCIUM 20MG TABLET PO SCH (21:41)
[2022-08-23] VITALS (12 sets, daily range): BP systolic 91–143; BP diastolic 63–83
[2022-08-23] MEDS: NITROGLYCERIN OINT 1GM/INCH UDPKT TD SCH (05:00)
[2022-08-23] MEDS ORDERED: DEXT 5%/0.45% NACL 1000ML 1,000 ML IV SCH (08:15)
[2022-08-23] MEDS: ASPIRIN 81MG EC TABLET PO SCH (08:26)
[2022-08-23] MEDS: CEFTRIAXONE 1,000 MG in DEXTROSE 5% WATER 50 ML IV SCH (08:26)
[2022-08-23] MEDS: AMLODIPINE 5MG TABLET PO SCH ×2 (08:27→22:00)
[2022-08-23] MEDS ORDERED: DEXT 10% WATER 1,000 ML IV SCH (12:15)
[2022-08-23] MEDS: DEXT 10% WATER 1,000 ML IV SCH (13:45)
[2022-08-23] MEDS: ATORVASTATIN CALCIUM 20MG TABLET PO SCH (22:00)
[2022-08-24] VITALS (12 sets, daily range): BP systolic 84–145; BP diastolic 56–88
[2022-08-24] MEDS: DEXT 10% WATER 1,000 ML IV SCH ×2 (00:26→13:40)
[2022-08-24 06:43] LABS: BASOPHILS % 0.3 % (0.0-2.0); EOSINOPHILS % 2.6 % (0.0-5.0); HEMATOCRIT. 35.4 % (36.0-48.0); HEMOGLOBIN. 11.7 g/dL (12.0-16.0); LYMPHOCYTES % 27.2 % (20.0-50.0); MEAN CORPUSCULAR VOLUME 93.9 fL (81.0-99.0); MEAN PLATELET VOLUME 10.3 fl (7.4-10.4); MONOCYTES % 14.1 % (2.0-8.0); NEUTROPHILS % 55.8 % (40.0-76.0); PLATELET 99 x1000/uL (130-400); RED BLOOD CELL COUNT 3.77 mill/uL (4.2-5.4); RED CELL DISTRIBUTION WIDTH 14.5 % (11.6-14.6)
[2022-08-24 06:49] LABS: INR 1.1; PROTHROMBIN TIME 11.4 sec (9.6-11.0)
[2022-08-24] MEDS: AMLODIPINE 5MG TABLET PO SCH ×2 (09:16→21:47)
[2022-08-24] MEDS: ASPIRIN 81MG EC TABLET PO SCH (09:16)
[2022-08-24] MEDS ORDERED: CEFAZOLIN 1000MG PREMIX 50 ML IV PRN (10:00)
[2022-08-24] MEDS: ISOSORBIDE MONONITRATE 30MG TABLET SR 24HR PO SCH (10:44)
[2022-08-24] MEDS ORDERED: DEXTROSE 50% WATER 50ML SYRINGE IV PRN (16:00)
[2022-08-24] MEDS: ATORVASTATIN CALCIUM 20MG TABLET PO SCH (21:48)
[2022-08-25] VITALS (11 sets, daily range): BP systolic 98–128; BP diastolic 49–75
[2022-08-25 06:54] LABS: HEMATOCRIT. 33.6 % (36.0-48.0); HEMOGLOBIN. 11.2 g/dL (12.0-16.0); MEAN CORPUSCULAR HEMOGLOBIN 31.4 pg (28.0-32.0); MEAN CORPUSCULAR VOLUME 94.4 fL (81.0-99.0); MEAN PLATELET VOLUME 9.9 fl (7.4-10.4); PLATELET 86 x1000/uL (130-400); RED BLOOD CELL COUNT 3.56 mill/uL (4.2-5.4); RED CELL DISTRIBUTION WIDTH 14.4 % (11.6-14.6)
[2022-08-25 07:10] LABS: INR 1.1; PROTHROMBIN TIME 11.6 sec (9.6-11.0)
[2022-08-25] MEDS: ISOSORBIDE MONONITRATE 30MG TABLET SR 24HR PO SCH (08:06)
[2022-08-25] MEDS: AMLODIPINE 5MG TABLET PO SCH ×2 (08:06→21:00)
[2022-08-25] MEDS: ASPIRIN 81MG EC TABLET PO SCH (08:06)
[2022-08-25] MEDS: DEXT 10% WATER 1,000 ML IV SCH (12:13)
[2022-08-25] MEDS ORDERED: PROPOFOL 200MG/20ML VIAL IV ONE (13:39)
[2022-08-25] MEDS ORDERED: LIDOCAINE HCL 1% 10 MG/ML 10ML VIAL ONE (13:40)
[2022-08-25] MEDS ORDERED: MIDAZOLAM HCL 2 MG/2 ML VIAL ONE (14:25)
[2022-08-25] MEDS ORDERED: GLYCOPYRROLATE 0.2 MG/ML 2ML VIAL ONE (14:44)
[2022-08-25] MEDS ORDERED: EPHEDRINE SULFATE 50MG/ML VIAL ONE (14:47)
[2022-08-25] MEDS: SUCRALFATE 1 G/10 ML UDC PEG SCH (18:02)
[2022-08-25] MEDS: ATORVASTATIN CALCIUM 20MG TABLET PO SCH (21:38)
[2022-08-26] VITALS (12 sets, daily range): BP systolic 100–143; BP diastolic 50–76
[2022-08-26] MEDS: SUCRALFATE 1 G/10 ML UDC PEG SCH ×4 (00:24→17:59)
[2022-08-26] MEDS: DEXT 10% WATER 1,000 ML IV SCH ×2 (05:30→13:00)
[2022-08-26] MEDS: METOCLOPRAMIDE HCL 10MG/2ML VIAL IV SCH ×3 (05:32→17:59)
[2022-08-26 07:12] LABS: NUCLEATED RED BLOOD CELLS 2 /100 WBC; PLATELET ESTIMATE DECREASED
[2022-08-26] MEDS: AMLODIPINE 5MG TABLET PO SCH ×2 (08:45→21:00)
[2022-08-26] MEDS: ASPIRIN 81MG EC TABLET PO SCH (08:45)
[2022-08-26] MEDS: OMEPRAZOLE 20MG CAPSULE EXTENDED RELEASE PO SCH (08:46)
[2022-08-26] MEDS: ISOSORBIDE MONONITRATE 30MG TABLET SR 24HR PO SCH (08:47)
[2022-08-26] MEDS: ATORVASTATIN CALCIUM 20MG TABLET PO SCH (21:20)
[2022-08-27] VITALS (12 sets, daily range): BP systolic 88–150; BP diastolic 40–92
[2022-08-27] MEDS: METOCLOPRAMIDE HCL 10MG/2ML VIAL IV SCH ×4 (00:44→17:56)
[2022-08-27] MEDS: SUCRALFATE 1 G/10 ML UDC PEG SCH ×4 (00:44→17:56)
[2022-08-27] MEDS: DEXTROSE 50% WATER 50ML SYRINGE IV PRN ×2 (01:02→07:32)
[2022-08-27] MEDS: DEXT 10% WATER 1,000 ML IV SCH (05:56)
[2022-08-27] MEDS: ISOSORBIDE MONONITRATE 30MG TABLET SR 24HR PO SCH (08:02)
[2022-08-27] MEDS: OMEPRAZOLE 20MG CAPSULE EXTENDED RELEASE PO SCH (08:02)
[2022-08-27] MEDS: AMLODIPINE 5MG TABLET PO SCH ×2 (08:02→21:50)
[2022-08-27] MEDS: ASPIRIN 81MG EC TABLET PO SCH (08:02)
[2022-08-27] MEDS: ATORVASTATIN CALCIUM 20MG TABLET PO SCH (21:50)
[2022-08-28] VITALS (10 sets, daily range): BP systolic 112–151; BP diastolic 63–90
[2022-08-28] MEDS: SUCRALFATE 1 G/10 ML UDC PEG SCH ×3 (00:37→11:22)
[2022-08-28] MEDS ORDERED: DEXT 10% WATER 1,000 ML IV SCH (02:30)
[2022-08-28] MEDS: ASPIRIN 81MG EC TABLET PO SCH (08:51)
[2022-08-28] MEDS: AMLODIPINE 5MG TABLET PO SCH (08:52)
[2022-08-28] MEDS: ISOSORBIDE MONONITRATE 30MG TABLET SR 24HR PO SCH (08:52)
[2022-08-28] MEDS: OMEPRAZOLE 20MG CAPSULE EXTENDED RELEASE PO SCH (08:52)
[2022-08-28] MEDS ORDERED: LACTULOSE 20G/30ML UDC PO NR (09:30)
[2022-08-28 10:08] LABS: CHLORIDE 98 mEq/L (98-107)
[2022-08-28 11:29] LABS: VITAMIN B12 SERUM 1182 pg/mL (211-911)
== END 2022-08-28 17:31 | DRG 682 ==
LOC: ER 13:48 → 5EST 17:59 → EDBEDREQTM 18:04 → EDBEDREQ 18:04 → EDBEDREQSVC 18:04 → ENRESERV 20:22
PROVIDERS: ADMIT Internal Medicine; ATTEND Internal Medicine
PROC: 0DB78ZX Excision of Stomach, Pylorus, Via Natural or Artificial Opening Endoscopic, Diagnostic (ICD-10-PCS; principal; 2022-08-25)
PROC: 0DH63UZ Insertion of Feeding Device into Stomach, Percutaneous Approach (ICD-10-PCS; 2022-08-25)
DX: N17.9 Acute kidney failure, unspecified (principal); G93.41 Metabolic encephalopathy; E46 Unspecified protein-calorie malnutrition; E87.0 Hyperosmolality and hypernatremia; N39.0 Urinary tract infection, site not specified; F03.93 Unspecified dementia, unspecified severity, with mood disturbance; E87.5 Hyperkalemia; K21.9 Gastro-esophageal reflux disease without esophagitis; K44.9 Diaphragmatic hernia without obstruction or gangrene; K29.80 Duodenitis without bleeding; E03.9 Hypothyroidism, unspecified; N18.9 Chronic kidney disease, unspecified; Z20.822 Contact with and (suspected) exposure to COVID-19; I25.10 Atherosclerotic heart disease of native coronary artery without angina pectoris; E16.2 Hypoglycemia, unspecified; I12.9 Hypertensive chronic kidney disease with stage 1 through stage 4 chronic kidney disease, or unspecified chronic kidney disease; R62.7 Adult failure to thrive; E66.9 Obesity, unspecified; E78.5 Hyperlipidemia, unspecified; E86.0 Dehydration; I34.81 Nonrheumatic mitral (valve) annulus calcification; F31.9 Bipolar disorder, unspecified; F20.9 Schizophrenia, unspecified; K29.60 Other gastritis without bleeding; J44.9 Chronic obstructive pulmonary disease, unspecified; R63.0 Anorexia; R06.89 Other abnormalities of breathing; M19.90 Unspecified osteoarthritis, unspecified site; R00.1 Bradycardia, unspecified; R26.81 Unsteadiness on feet; Z68.29 Body mass index [BMI] 29.0-29.9, adult; Z91.199 Patient's noncompliance with other medical treatment and regimen due to unspecified reason; Z79.899 Other long term (current) drug therapy; Z86.73 Personal history of transient ischemic attack (TIA), and cerebral infarction without residual deficits; Z79.82 Long term (current) use of aspirin
CPT/HCPCS: 36415; 71045; 76700; 80048; 80053; 80061; 81003; 82140; 82607; 82962; 83605; 83735; 83880; 84100; 84145; 84439; 84443; 84481; 84484; 85025; 87426; 88305; 92610; 93005; 93306; 93880; 94640; 99291; C9803; J0696; J2250; J2543; J2704; J2765; J3370; J3490; J7030; J7060; J7070; A4315

== ENCOUNTER 2022-09-30 13:25 | Inpatient (IN) | payer MEDICARE, MEDICAID ==
[~2022-09-30] VITALS: Ht 320 cm; Wt 64.0 kg
[~2022-09-30 13:25] MED LIST changes: -METO-539 PO
[2022-09-30] MEDS ORDERED: VANCOMYCIN 1G PREMIX 200 ML IV ONE (14:00)
[2022-09-30] MEDS ORDERED: PIPERACILLIN/TAZ 3.375G PREMIX 50 ML IV ONE (14:00)
[2022-09-30] MEDS ORDERED: OSELTAMIVIR 75MG CAPSULE PO ONE (14:00)
[2022-09-30] MEDS ORDERED: SODIUM CHLORIDE 0.9% 1000ML BAG (SEPSIS BOLUS) IV ONE (14:00)
[2022-09-30 14:31] LABS: BASOPHILS % 0.8 % (0.0-2.0); EOSINOPHILS % 0.4 % (0.0-5.0); HEMATOCRIT. 30.6 % (36.0-48.0); HEMOGLOBIN. 10.1 g/dL (12.0-16.0); LYMPHOCYTES % 17.2 % (20.0-50.0); MEAN CORPUSCULAR HEMOGLOBIN 31.3 pg (28.0-32.0); MEAN CORPUSCULAR VOLUME 94.8 fL (81.0-99.0); MEAN PLATELET VOLUME 8.7 fl (7.4-10.4); MONOCYTES % 13.6 % (2.0-8.0); PLATELET 327 x1000/uL (130-400); RED BLOOD CELL COUNT 3.23 mill/uL (4.2-5.4); RED CELL DISTRIBUTION WIDTH 14.2 % (11.6-14.6)
[2022-09-30 14:38] LABS: CHLORIDE 103 mEq/L (98-107)
[2022-09-30] MEDS ORDERED: ALBUTEROL (0.083%) 2.5MG/3ML NEB HHN ONE (16:00)
[2022-09-30] MEDS ORDERED: SODIUM BICARBONATE 8.4% 1 MEQ/ML 50ML SYR IV ONE (16:00)
[2022-09-30] MEDS ORDERED: DEXTROSE 50% WATER 50ML SYRINGE IV ONE (16:00)
[2022-09-30] MEDS ORDERED: INSULIN REGULAR (HUMULIN R) 300UNITS/3ML VIAL IV ONE (16:00)
[2022-09-30] MEDS ORDERED: SODIUM POLYSTYRENE SULFONATE 15 G/60 ML BOT PO ONE (16:00)
[2022-09-30] MEDS ORDERED: ASPIRIN 81MG EC TABLET PO ONE (18:30)
[2022-09-30] MEDS ORDERED: CLONIDINE 0.1MG TABLET PO PRN (19:00)
[2022-09-30] MEDS ORDERED: DIPHENHYDRAMINE 50MG/ML VIAL IV PRN (19:00)
[2022-09-30] MEDS ORDERED: ACETAMINOPHEN 325MG TABLET PO PRN (19:00)
[2022-09-30] MEDS ORDERED: ONDANSETRON HCL 4MG/2ML INJ IV PRN (19:00)
[2022-09-30] MEDS ORDERED: IPRATROPIUM/ALBUTEROL 0.5-3(2.5)MG/3ML NEB HHN PRN (19:00)
[2022-09-30] MEDS: SODIUM CHLORIDE 0.9% 1,000 ML IV SCH (20:30)
[2022-10-01] MEDS: SODIUM CHLORIDE 0.9% 1,000 ML IV SCH (16:24)
[2022-10-01] MEDS ORDERED: VANCOMYCIN 750MG PREMIX 150 ML IV SCH (16:30)
[2022-10-01] MEDS: DEXT 5%/0.9% NACL 1,000 ML IV SCH (21:26)
[2022-10-01] MEDS ORDERED: DEXTROSE 50% WATER 50ML SYRINGE IV NR (21:54)
[2022-10-01] MEDS: BLOOD SUGAR DIAGNOSTIC STRIP TEST SCH ×2 (22:25→23:30)
[2022-10-01 23:01] LABS: HEMATOCRIT. 32.3 % (36.0-48.0); HEMOGLOBIN. 10.2 g/dL (12.0-16.0); LYMPHOCYTES % 21.1 % (20.0-50.0); MEAN CORPUSCULAR VOLUME 97.6 fL (81.0-99.0); MEAN PLATELET VOLUME 8.1 fl (7.4-10.4); MONOCYTES % 12.9 % (2.0-8.0); PLATELET 321 x1000/uL (130-400); RED CELL DISTRIBUTION WIDTH 14.7 % (11.6-14.6)
[2022-10-01 23:07] LABS: CHLORIDE 104 mEq/L (98-107)
[2022-10-01 23:16] LABS: CREATINE KINASE 246 IU/L (26-192)
[2022-10-01 23:45] LABS: CLARITY URINE CLEAR (CLEAR); COLOR URINE YELLOW (YELLOW); KETONES URINE NEGATIVE (NEGATIVE); LEUKOCYTE ESTERASE URINE NEGATIVE (NEGATIVE); NITRITE URINE NEGATIVE (NEGATIVE); OCCULT BLOOD URINE NEGATIVE (NEGATIVE); PH URINE 7.5 (4.5-8.0); PROTEIN URINE 1+ (NEGATIVE); SPECIFIC GRAVITY URINE 1.012 (1.005-1.030)
[2022-10-02] MEDS: BLOOD SUGAR DIAGNOSTIC STRIP TEST SCH ×13 (00:32→13:00)
[2022-10-02 04:44] LABS: HEMATOCRIT. 34.2 % (36.0-48.0); HEMOGLOBIN. 11.1 g/dL (12.0-16.0); MEAN CORPUSCULAR HEMOGLOBIN 31.1 pg (28.0-32.0); MEAN CORPUSCULAR VOLUME 96.3 fL (81.0-99.0); MEAN PLATELET VOLUME 8.2 fl (7.4-10.4); PLATELET 298 x1000/uL (130-400); RED BLOOD CELL COUNT 3.55 mill/uL (4.2-5.4); RED CELL DISTRIBUTION WIDTH 14.5 % (11.6-14.6)
[2022-10-02] MEDS ORDERED: DEXTROSE 50% WATER 50ML SYRINGE IV PRN (04:45)
[2022-10-02 04:59] LABS: PHOSPHORUS 3.2 mg/dL (2.5-4.9)
[2022-10-02] MEDS: DEXTROSE 50% WATER 50ML SYRINGE IV PRN (09:18)
[2022-10-02] MEDS: DEXT 5%/0.9% NACL 1,000 ML IV SCH ×2 (09:18→22:06)
[2022-10-02 12:00] VITALS: BP 135/93
[2022-10-02 12:14] LABS: PLATELET ESTIMATE NORMAL
[2022-10-02 16:00] VITALS: BP 122/68
[2022-10-02 17:00] VITALS: BP 135/93
[2022-10-02 20:00] VITALS: BP 179/109
[2022-10-02] MEDS: VANCOMYCIN 1G PREMIX 200 ML IV SCH (21:03)
[2022-10-03] VITALS: BP 150/92
[2022-10-03 04:00] VITALS: BP 129/88
[2022-10-03] MEDS: DEXTROSE 50% WATER 50ML SYRINGE IV PRN (06:08)
[2022-10-03] MEDS: BLOOD SUGAR DIAGNOSTIC STRIP TEST SCH ×12 (07:00→23:45)
[2022-10-03 07:27] LABS: HEMOGLOBIN. 9.5 g/dL (12.0-16.0); MEAN CORPUSCULAR HEMOGLOBIN 31.4 pg (28.0-32.0); MEAN PLATELET VOLUME 8.4 fl (7.4-10.4); PLATELET 289 x1000/uL (130-400); RED BLOOD CELL COUNT 3.02 mill/uL (4.2-5.4); RED CELL DISTRIBUTION WIDTH 14.3 % (11.6-14.6)
[2022-10-03 08:00] VITALS: BP 125/74
[2022-10-03] MEDS: DEXT 5%/0.9% NACL 1,000 ML IV SCH (09:32)
[2022-10-03 10:55] LABS: PLATELET ESTIMATE NORMAL
[2022-10-03] MEDS: ENOXAPARIN 60MG/0.6ML SYR SUBCUT SCH ×2 (10:58→20:51)
[2022-10-03 12:00] VITALS: BP 121/51
[2022-10-03] MEDS ORDERED: DILTIAZEM HCL 60MG TABLET PO SCH (12:00)
[2022-10-03] MEDS: DILTIAZEM HCL 30MG TABLET PO SCH ×4 (12:00→23:53)
[2022-10-03 16:00] VITALS: BP 127/75
[2022-10-03] MEDS ORDERED: DILT30TA38 PO (17:08)
[2022-10-03] MEDS ORDERED: LINE600T14 MT (17:08)
[2022-10-03] MEDS ORDERED: APIX5TAB MT (17:08)
[2022-10-03] MEDS: VANCOMYCIN 1G PREMIX 200 ML IV SCH (18:45)
[2022-10-03 20:01] VITALS: BP 149/88
[2022-10-04] VITALS (7 sets, daily range): BP systolic 105–147; BP diastolic 63–92
[2022-10-04] MEDS: BLOOD SUGAR DIAGNOSTIC STRIP TEST SCH ×9 (01:00→21:00)
[2022-10-04] MEDS: DILTIAZEM HCL 30MG TABLET PO SCH ×3 (05:34→17:10)
[2022-10-04 07:45] LABS: BASOPHILS % 0.3 % (0.0-2.0); EOSINOPHILS % 2.8 % (0.0-5.0); HEMATOCRIT. 30.5 % (36.0-48.0); HEMOGLOBIN. 10.2 g/dL (12.0-16.0); INR 1.2; LYMPHOCYTES % 33.5 % (20.0-50.0); MEAN CORPUSCULAR HEMOGLOBIN 31.1 pg (28.0-32.0); MEAN CORPUSCULAR VOLUME 92.9 fL (81.0-99.0); MEAN PLATELET VOLUME 8.7 fl (7.4-10.4); MONOCYTES % 14.3 % (2.0-8.0); NEUTROPHILS % 49.1 % (40.0-76.0); PLATELET 298 x1000/uL (130-400); PROTHROMBIN TIME 12.4 sec (9.6-11.0); RED BLOOD CELL COUNT 3.28 mill/uL (4.2-5.4); RED CELL DISTRIBUTION WIDTH 13.9 % (11.6-14.6)
[2022-10-04] MEDS: ENOXAPARIN 60MG/0.6ML SYR SUBCUT SCH (08:32)
[2022-10-04] MEDS: VANCOMYCIN 1G PREMIX 200 ML IV SCH ×2 (17:10→19:07)
== END 2022-10-04 22:30 | DRG 871 ==
LOC: ER 13:32 → MICUSO 18:23 → EDBEDREQTM 18:25 → EDBEDREQ 18:25 → 7WST 10-02 10:49
PROVIDERS: ADMIT Internal Medicine; ATTEND Internal Medicine
DX: A41.01 Sepsis due to Methicillin susceptible Staphylococcus aureus (principal); N17.0 Acute kidney failure with tubular necrosis; E87.20 Acidosis, unspecified; E44.0 Moderate protein-calorie malnutrition; E16.2 Hypoglycemia, unspecified; E87.5 Hyperkalemia; D63.1 Anemia in chronic kidney disease; Z20.822 Contact with and (suspected) exposure to COVID-19; F20.9 Schizophrenia, unspecified; F31.9 Bipolar disorder, unspecified; I48.0 Paroxysmal atrial fibrillation; I12.9 Hypertensive chronic kidney disease with stage 1 through stage 4 chronic kidney disease, or unspecified chronic kidney disease; I25.10 Atherosclerotic heart disease of native coronary artery without angina pectoris; J44.9 Chronic obstructive pulmonary disease, unspecified; N18.9 Chronic kidney disease, unspecified; K21.9 Gastro-esophageal reflux disease without esophagitis; E78.5 Hyperlipidemia, unspecified; M71.22 Synovial cyst of popliteal space [Baker], left knee; I95.9 Hypotension, unspecified; I34.0 Nonrheumatic mitral (valve) insufficiency; Z79.82 Long term (current) use of aspirin; Z90.3 Acquired absence of stomach [part of]; Z93.1 Gastrostomy status
CPT/HCPCS: 36415; 71045; 76770; 80048; 80053; 80061; 80202; 81003; 82533; 82550; 82962; 83605; 83735; 84100; 84145; 84484; 85025; 87077; 87186; 87426; 87804; 93005; 93306; 93880; 93970; 99291; C9803; J1650; J1815; J2543; J3370; J3490; J7030; J7042

== ENCOUNTER 2022-10-25 22:09 | Inpatient (IN) | payer MEDICARE, MEDICAID ==
[~2022-10-25] VITALS: Ht 160 cm; Wt 71.4 kg
[~2022-10-25 22:09] MED LIST changes: -AMLO10TA4 PO; +APIX5TAB MT; -ASPI-1497 PO; +DILT30TA38 PO; +LINE600T14 MT
[2022-10-25] MEDS ORDERED: PANTOPRAZOLE SODIUM 40 MG/VIAL IV STA (22:35)
[2022-10-25] MEDS ORDERED: SODIUM CHLORIDE 0.9% 1,000 ML IV ONE (22:45)
[2022-10-25 22:57] LABS: BASOPHILS % 0.6 % (0.0-2.0); EOSINOPHILS % 0.3 % (0.0-5.0); HEMATOCRIT. 31.7 % (36.0-48.0); HEMOGLOBIN. 10.6 g/dL (12.0-16.0); LYMPHOCYTES % 14.7 % (20.0-50.0); MEAN CORPUSCULAR HEMOGLOBIN 30.7 pg (28.0-32.0); MEAN PLATELET VOLUME 7.8 fl (7.4-10.4); MONOCYTES % 7.1 % (2.0-8.0); NEUTROPHILS % 77.3 % (40.0-76.0); PLATELET 356 x1000/uL (130-400); RED BLOOD CELL COUNT 3.44 mill/uL (4.2-5.4); RED CELL DISTRIBUTION WIDTH 15.2 % (11.6-14.6)
[2022-10-25 23:06] LABS: INR 1.2; PROTHROMBIN TIME 13.2 sec (9.6-11.0)
[2022-10-25 23:08] LABS: CHLORIDE 97 mEq/L (98-107)
[2022-10-26] MEDS ORDERED: PANTOPRAZOLE SODIUM 40 MG/VIAL IV NR (00:15)
[2022-10-26] MEDS ORDERED: ONDANSETRON HCL 4MG/2ML INJ IV PRN (03:15)
[2022-10-26] MEDS ORDERED: ACETAMINOPHEN 650MG SUPP PR PRN ×2 (03:15)
[2022-10-26] MEDS ORDERED: PANTOPRAZOLE SODIUM 40 MG/VIAL IV SCH ×2 (03:15→09:15)
[2022-10-26] MEDS ORDERED: IPRATROPIUM/ALBUTEROL 0.5-3(2.5)MG/3ML NEB HHN PRN (03:15)
[2022-10-26] MEDS ORDERED: LORAZEPAM 2MG/ML CPJ IV PRN (03:15)
[2022-10-26] MEDS: DEXT 5%/0.45% NACL 1000ML 1,000 ML IV SCH ×3 (03:15→23:15)
[2022-10-26] MEDS ORDERED: HYDRALAZINE 20MG/ML VIAL IV PRN (03:30)
[2022-10-26 08:22] LABS: BASOPHILS % 0.8 % (0.0-2.0); HEMATOCRIT. 30.3 % (36.0-48.0); HEMOGLOBIN. 9.9 g/dL (12.0-16.0); LYMPHOCYTES % 17.6 % (20.0-50.0); MEAN CORPUSCULAR HEMOGLOBIN 30.4 pg (28.0-32.0); MEAN CORPUSCULAR VOLUME 92.9 fL (81.0-99.0); MEAN PLATELET VOLUME 8.2 fl (7.4-10.4); MONOCYTES % 9.6 % (2.0-8.0); PLATELET 297 x1000/uL (130-400); RED BLOOD CELL COUNT 3.26 mill/uL (4.2-5.4); RED CELL DISTRIBUTION WIDTH 15.8 % (11.6-14.6)
[2022-10-26 08:45] LABS: PHOSPHORUS 3.9 mg/dL (2.5-4.9)
[2022-10-26 12:00] VITALS: BP 119/84
[2022-10-26] MEDS ORDERED: BISACODYL 10MG SUPP PR PRN (13:30)
[2022-10-26] MEDS ORDERED: LACTULOSE 20G/30ML UDC GT NR (13:30)
[2022-10-26 15:00] VITALS: BP 151/96
[2022-10-26 15:08] LABS: TOTAL IRON BINDING CAPACITY 259 ug/dL (250-450)
[2022-10-26 15:58] VITALS: BP 119/84
[2022-10-26] MEDS: PANTOPRAZOLE SODIUM 40 MG/VIAL IV SCH (16:28)
[2022-10-26] MEDS: SUCRALFATE 1 G/10 ML UDC GT SCH ×2 (18:03→21:18)
[2022-10-26 18:23] LABS: FOLIC ACID (FOLATE) SERUM 19.6 ng/mL (>5.38)
[2022-10-26] MEDS ORDERED: BISACODYL 10MG SUPP PR NR (19:30)
[2022-10-26 20:00] VITALS: BP 135/86
[2022-10-26] MEDS ORDERED: LEVO75TA7 MT (22:23)
[2022-10-27] VITALS: BP 130/84
[2022-10-27 04:00] VITALS: BP 114/57
[2022-10-27 04:08] LABS: CLARITY URINE CLEAR (CLEAR); COLOR URINE YELLOW (YELLOW); KETONES URINE NEGATIVE (NEGATIVE); LEUKOCYTE ESTERASE URINE TRACE (NEGATIVE); NITRITE URINE NEGATIVE (NEGATIVE); OCCULT BLOOD URINE NEGATIVE (NEGATIVE); PROTEIN URINE 1+ (NEGATIVE); UROBILINOGEN URINE 0.2 E.U./dL (0.2-1.0)
[2022-10-27 07:45] LABS: T4 FREE 0.88 ng/dL (0.76-1.46)
[2022-10-27 08:15] LABS: BASOPHILS % 0.6 % (0.0-2.0); EOSINOPHILS % 1.7 % (0.0-5.0); HEMATOCRIT. 23.8 % (36.0-48.0); HEMOGLOBIN. 7.9 g/dL (12.0-16.0); LYMPHOCYTES % 19.1 % (20.0-50.0); MEAN CORPUSCULAR VOLUME 92.8 fL (81.0-99.0); MEAN PLATELET VOLUME 8.1 fl (7.4-10.4); MONOCYTES % 7.5 % (2.0-8.0); NEUTROPHILS % 71.1 % (40.0-76.0); PLATELET 293 x1000/uL (130-400); RED BLOOD CELL COUNT 2.56 mill/uL (4.2-5.4); RED CELL DISTRIBUTION WIDTH 15.1 % (11.6-14.6)
[2022-10-27] MEDS: SUCRALFATE 1 G/10 ML UDC GT SCH ×4 (09:33→20:52)
[2022-10-27] MEDS: DEXT 5%/0.45% NACL 1000ML 1,000 ML IV SCH ×2 (09:33→20:52)
[2022-10-27] MEDS: DOCUSATE SODIUM SUGAR FREE 100MG/10ML UDC GT SCH (09:35)
[2022-10-27] MEDS: PANTOPRAZOLE SODIUM 40 MG/VIAL IV SCH ×2 (09:36→18:02)
[2022-10-27] MEDS ORDERED: LEVOTHYROXINE SODIUM 75MCG TABLET GT SCH (10:30)
[2022-10-27 12:00] VITALS: BP 160/96
[2022-10-27] MEDS: DILTIAZEM HCL 30MG TABLET PO SCH ×2 (13:17→18:01)
[2022-10-27] MEDS ORDERED: ALBUTEROL (0.083%) 2.5MG/3ML NEB HHN PRN (15:00)
[2022-10-27] MEDS ORDERED: IPRATROPIUM BROMIDE (0.02%) 0.5MG/2.5ML NEB HHN PRN (15:00)
[2022-10-27 16:00] VITALS: BP 158/90
[2022-10-27] MEDS ORDERED: DOCUSATE SODIUM 100MG CAPSULE PO SCH (17:00)
[2022-10-27] MEDS: RISPERIDONE 1MG TABLET PO SCH (18:01)
[2022-10-27 20:00] VITALS: BP 118/96
[2022-10-27] MEDS: ATORVASTATIN CALCIUM 20MG TABLET PO SCH (20:52)
[2022-10-28] VITALS: BP 140/86
[2022-10-28] MEDS: DILTIAZEM HCL 30MG TABLET PO SCH ×4 (00:27→17:53)
[2022-10-28 04:00] VITALS: BP 152/87
[2022-10-28] MEDS: DEXT 5%/0.45% NACL 1000ML 1,000 ML IV SCH ×2 (05:21→15:19)
[2022-10-28 07:10] LABS: BASOPHILS % 0.6 % (0.0-2.0); EOSINOPHILS % 1.7 % (0.0-5.0); HEMATOCRIT. 23.5 % (36.0-48.0); HEMOGLOBIN. 8.1 g/dL (12.0-16.0); LYMPHOCYTES % 18.5 % (20.0-50.0); MEAN CORPUSCULAR HEMOGLOBIN 32.1 pg (28.0-32.0); MEAN CORPUSCULAR VOLUME 92.7 fL (81.0-99.0); MEAN PLATELET VOLUME 7.8 fl (7.4-10.4); MONOCYTES % 10.2 % (2.0-8.0); PLATELET 292 x1000/uL (130-400); RED BLOOD CELL COUNT 2.53 mill/uL (4.2-5.4); RED CELL DISTRIBUTION WIDTH 15.6 % (11.6-14.6)
[2022-10-28 07:22] LABS: CHLORIDE 102 mEq/L (98-107)
[2022-10-28 08:00] VITALS: BP 133/79
[2022-10-28] MEDS: DOCUSATE SODIUM SUGAR FREE 100MG/10ML UDC GT SCH (08:57)
[2022-10-28] MEDS: LEVOTHYROXINE SODIUM 88MCG TABLET GT SCH (08:57)
[2022-10-28] MEDS: SUCRALFATE 1 G/10 ML UDC GT SCH ×4 (08:57→21:24)
[2022-10-28] MEDS: PANTOPRAZOLE SODIUM 40 MG/VIAL IV SCH ×2 (08:57→17:53)
[2022-10-28] MEDS: RISPERIDONE 1MG TABLET PO SCH ×2 (08:57→17:53)
[2022-10-28 12:00] VITALS: BP 95/59
[2022-10-28 16:00] VITALS: BP 130/78
[2022-10-28] MEDS: ATORVASTATIN CALCIUM 20MG TABLET PO SCH (21:24)
[2022-10-29] VITALS (7 sets, daily range): BP systolic 126–177; BP diastolic 72–93
[2022-10-29] MEDS: DILTIAZEM HCL 30MG TABLET PO SCH ×4 (00:30→18:16)
[2022-10-29] MEDS: DEXT 5%/0.45% NACL 1000ML 1,000 ML IV SCH ×2 (00:31→12:06)
[2022-10-29 07:45] LABS: BASOPHILS % 0.6 % (0.0-2.0); EOSINOPHILS % 1.6 % (0.0-5.0); MEAN CORPUSCULAR HEMOGLOBIN 30.7 pg (28.0-32.0); MEAN CORPUSCULAR VOLUME 92.1 fL (81.0-99.0); MEAN PLATELET VOLUME 7.8 fl (7.4-10.4); MONOCYTES % 8.7 % (2.0-8.0); NEUTROPHILS % 65.1 % (40.0-76.0); PLATELET 347 x1000/uL (130-400); RED BLOOD CELL COUNT 3.06 mill/uL (4.2-5.4); RED CELL DISTRIBUTION WIDTH 15.5 % (11.6-14.6)
[2022-10-29] MEDS: DOCUSATE SODIUM SUGAR FREE 100MG/10ML UDC GT SCH (08:11)
[2022-10-29] MEDS: SUCRALFATE 1 G/10 ML UDC GT SCH ×4 (08:11→21:08)
[2022-10-29] MEDS: RISPERIDONE 1MG TABLET PO SCH ×2 (08:11→18:16)
[2022-10-29] MEDS: LEVOTHYROXINE SODIUM 88MCG TABLET GT SCH (08:11)
[2022-10-29] MEDS: PANTOPRAZOLE SODIUM 40 MG/VIAL IV SCH ×2 (08:11→18:16)
[2022-10-29 08:25] LABS: HEMATOCRIT. 28.2 % (36.0-48.0); HEMOGLOBIN. 9.4 g/dL (12.0-16.0)
[2022-10-29] MEDS: ATORVASTATIN CALCIUM 20MG TABLET PO SCH (21:08)
[2022-10-30] VITALS: BP 158/90
[2022-10-30] MEDS: DILTIAZEM HCL 30MG TABLET PO SCH (00:08)
== END 2022-10-30 03:15 | DRG 377 ==
LOC: ER 22:09 → MICUSO 10-26 02:01 → 7WST 10-26 15:07
PROVIDERS: ADMIT Hospitalist; ATTEND Hospitalist
DX: K92.2 Gastrointestinal hemorrhage, unspecified (principal); E43 Unspecified severe protein-calorie malnutrition; F02.83 Dementia in other diseases classified elsewhere, unspecified severity, with mood disturbance; D53.9 Nutritional anemia, unspecified; E03.9 Hypothyroidism, unspecified; I25.10 Atherosclerotic heart disease of native coronary artery without angina pectoris; Z20.822 Contact with and (suspected) exposure to COVID-19; E78.00 Pure hypercholesterolemia, unspecified; R13.10 Dysphagia, unspecified; R94.4 Abnormal results of kidney function studies; I10 Essential (primary) hypertension; R47.1 Dysarthria and anarthria; J44.9 Chronic obstructive pulmonary disease, unspecified; F31.9 Bipolar disorder, unspecified; F20.9 Schizophrenia, unspecified; Z68.27 Body mass index [BMI] 27.0-27.9, adult; Z79.899 Other long term (current) drug therapy; Z79.01 Long term (current) use of anticoagulants; Z86.73 Personal history of transient ischemic attack (TIA), and cerebral infarction without residual deficits
CPT/HCPCS: 36415; 71045; 74177; 80048; 80053; 81003; 82270; 82607; 82728; 82746; 83540; 83550; 83735; 84100; 84439; 84443; 85025; 85044; 87426; 93005; 93880; 99285; C9113; J7030

== ENCOUNTER 2022-11-12 10:48 | Emergency (ER) | payer MEDICARE, MEDICAID ==
[~2022-11-12] VITALS: Ht 165.1 cm; Wt 68.5 kg
[~2022-11-12 10:48] MED LIST changes: -LEVO100T PO; +LEVO75TA7 MT; -LINE600T14 MT
[2022-11-12] MEDS ORDERED: DIATR MEGLU/DIATRIZOATE SOLN 30ML PO ONE (11:15)
[2022-11-12] MEDS ORDERED: DIATR MEGLU/DIATRIZOATE SOLN 30ML ONE (11:49)
[2022-11-12 21:50] VITALS: BP 142/59
== END 2022-11-12 22:08 | disposition home or self-care (01) ==
LOC: ER 10:48
DX: K94.23 Gastrostomy malfunction (principal); J44.9 Chronic obstructive pulmonary disease, unspecified; E78.00 Pure hypercholesterolemia, unspecified; Z86.73 Personal history of transient ischemic attack (TIA), and cerebral infarction without residual deficits; Z79.899 Other long term (current) drug therapy
CPT/HCPCS: 74018; 74176; 99284; Q9963

== ENCOUNTER 2024-01-29 22:36 | Emergency (ER) | payer MEDICARE, MEDICAID ==
[~2024-01-29] VITALS: Ht 172.7 cm; Wt 91.0 kg
[~2024-01-29 22:36] MED LIST changes: +DILT30TA37 PO; -DILT30TA38 PO; -DOCU-138 PO; +LEVO125T8 PO; -LEVO75TA7 MT; +QUET50TA23 PO; -RISP1 PO
== END 2024-01-30 00:15 ==
LOC: ER 22:36
DX: K94.23 Gastrostomy malfunction (principal)
CPT/HCPCS: 99283